=== PATIENT | female | born 1955 | race Caucasian/White ===

== ENCOUNTER 2018-03-11 09:32 | Day surgery (SDC) | payer OTHER, SELFPAY ==
[2018-03-11 10:05] VITALS: BP 137/79; PULSE 61; RESP 16; TEMP 36; O2SAT 100; BMI 28.1
[2018-03-11] MEDS: PROPARACAINE 0.5% OPHTH SOL 2 DROPS EYE-OP (10:15)
[2018-03-11] MEDS: CATARACT EYE COMPOUND (10 DROPS/SYRINGE) 3 DROPS EYE-OP (10:20)
--- NOTE | 2018-03-11 11:10 | PM.PREOP ---
Pre-operative Note Interval Note Pre-op Check: History & Physical Reviewed by Physician
--- NOTE | 2018-03-11 11:18 | SUR.OPER ---
Supine on eye stretcher, head on extension cradle secured with tape. Arms tucked at sides with blanket. Pillow under knees.
[2018-03-11] MEDS: CHONDROIDTIN/SOD HYALURONATE 1.05 ML SYRINGE INTRAOCULA (11:24)
[2018-03-11] MEDS: MOXIFLOXACIN OPHTH DROPS 3 ML BOTTLE 2 DROPS INJ (11:24)
[2018-03-11] MEDS: TRIAMCINOLONE 50 MG/5 ML VIAL INJ (11:25)
[2018-03-11] MEDS: PHENYLEPHRINE/LIDOCAINE 3ML VIAL (OR) EYE-OP (11:29)
[2018-03-11] MEDS: BALANCED SALT IRRIG SOLN NO.2 500 ML, EPINEPHrine 1 MG IRR (11:29)
[2018-03-11] MEDS: LIDOCAINE JELLY 2% 5 ML 1 APPLIC TOP (11:29)
[2018-03-11] MEDS: TETRACAINE 0.5% OPHTH DROPS 15 ML 2 DROPS EYE-RIGHT (11:29)
--- NOTE | 2018-03-11 11:34 | P.OP_ITS ---
Operative Date/Time/Diagnoses - Pre-op diagnosis: Cataract Right eye Post-op diagnosis: same Procedure & Clinicians Procedure: Cataract Surgery Same procedure as scheduled: Yes Surgeon: Aj Vargas Anesthesia Type: MAC +/- and Sedation Operative Notes Procedure in detail: Patient brought to the operating suite. Tetracaine drops placed in the right eye. Patient was prepped and draped in sterile manner. Wire lid speculum was placed in the eye. Betadine drops were placed on the eye. This was irrigated. Lidocaine jelly was placed on the eye. A paracentesis port was created with a side-port blade. 0.1 mL 1% preservative free lidocaine was injected into the anterior chamber. The anterior chamber was deepened with viscoelastic. 2.6 mm keratome was used to create a temporal clear corneal incision. Cystotome and Utrata forceps were used to create continuous tear capsulorrhexis. Balanced salt solution was used to hydro dissect the nucleus. The phacoemulsification handpiece was inserted and the nucleus was removed using the stop and chop technique. The irrigation aspiration handpiece was inserted and the remaining cortex was removed. Anterior chamber was deepened with viscoelastic. An Evans ZCB00 intraocular lens with a power of 12.5 was injected into the capsular bag. Irrigation aspiration handpiece was inserted and the remaining viscoelastic was removed. Incision was hydrated with balanced salt solution and found to be leak free with pressure with Weck- Cynthia sponges. 0.1 mL Vigamox injected anterior chamber. 0.3 mL Kenalog 10 mg was injected subconjunctivally. Lid speculum was removed. The patient left the operating room in excellent condition. Complications: none Condition: stable Disposition: same day surgery
[2018-03-11 11:43] VITALS: BP 129/80; PULSE 65; RESP 16; TEMP 36.6; O2SAT 99
== END 2018-03-11 11:52 ==
LOC: OR 09:34
PROVIDERS: PCP Family Medicine; Visit Provider Ophthalmology
DX: H25.11 Age-related nuclear cataract, right eye (principal); I10 Essential (primary) hypertension
CPT/HCPCS: J0171; J2250; J3010; J3301

== ENCOUNTER 2018-03-25 09:23 | Day surgery (SDC) | payer OTHER, SELFPAY ==
[2018-03-25 10:03] VITALS: BP 141/80; PULSE 62; RESP 16; TEMP 36.6; O2SAT 99
[2018-03-25 10:04] VITALS: BMI 29.0
[2018-03-25] MEDS: PROPARACAINE 0.5% OPHTH SOL 2 DROPS EYE-OP (10:13)
[2018-03-25] MEDS: CATARACT EYE COMPOUND (10 DROPS/SYRINGE) 3 DROPS EYE-OP (10:14)
--- NOTE | 2018-03-25 11:15 | P.OP_ITS ---
Operative Date/Time/Diagnoses - Pre-op diagnosis: Cataract Left eye Post-op diagnosis: same Procedure & Clinicians Surgeon: Aj Vargas Anesthesia Type: MAC +/- and Sedation Operative Notes Procedure in detail: Patient brought to the operating suite. Tetracaine drops placed in the left eye. Patient was prepped and draped in sterile manner. Wire lid speculum was placed in the eye. Betadine drops were placed on the eye. This was irrigated. Lidocaine jelly was placed on the eye. A paracentesis port was created with a side-port blade. 0.1 mL 1% preservative free lidocaine was injected into the anterior chamber. The anterior chamber was deepened with viscoelastic. 2.6 mm keratome was used to create a temporal clear corneal incision. Cystotome and Utrata forceps were used to create continuous tear capsulorrhexis. Balanced salt solution was used to hydro dissect the nucleus. The phacoemulsification handpiece was inserted and the nucleus was removed using the stop and chop technique. The irrigation aspiration handpiece was inserted and the remaining cortex was removed. Anterior chamber was deepened with viscoelastic. An Evans ZCB00 intraocular lens with a power of 12.0 was injected into the capsular bag. Irrigation aspiration handpiece was inserted and the remaining viscoelastic was removed. Incision was hydrated with balanced salt solution and found to be leak free with pressure with Weck- Cynthia sponges. 0.1 mL Vigamox injected anterior chamber. 0.3 mL Kenalog 10 mg was injected subconjunctivally. Lid speculum was removed. The patient left the operating room in excellent condition. Complications: none Condition: stable Disposition: same day surgery
[2018-03-25] MEDS: CHONDROIDTIN/SOD HYALURONATE 1.05 ML SYRINGE INTRAOCULA (11:28)
[2018-03-25] MEDS: MOXIFLOXACIN OPHTH DROPS 3 ML BOTTLE 2 DROPS INJ (11:28)
[2018-03-25] MEDS: TRIAMCINOLONE 50 MG/5 ML VIAL INJ (11:29)
[2018-03-25] MEDS: BALANCED SALT IRRIG SOLN NO.2 500 ML, EPINEPHrine 1 MG IRR (11:29)
[2018-03-25] MEDS: LIDOCAINE JELLY 2% 5 ML 1 APPLIC TOP (11:30)
[2018-03-25] MEDS: PHENYLEPHRINE/LIDOCAINE 3ML VIAL (OR) EYE-OP (11:31)
[2018-03-25] MEDS: TETRACAINE 0.5% OPHTH DROPS 15 ML 2 DROPS EYE-LEFT (11:31)
[2018-03-25 11:43] VITALS: BP 136/81; PULSE 64; RESP 15; TEMP 36.3; O2SAT 100
== END 2018-03-25 11:52 | disposition home or self-care (01) ==
PROVIDERS: PCP Family Medicine; Visit Provider Ophthalmology
DX: H25.12 Age-related nuclear cataract, left eye (principal); I10 Essential (primary) hypertension
CPT/HCPCS: J0171; J2250; J3010; J3301

== ENCOUNTER → 2018-04-14 15:06 | Outpatient (CLI) | payer OTHER, SELFPAY ==
--- NOTE | 2018-04-14 | DI.RAD.S_ITS ---
PROCEDURE: XR FINGER LT MIN 2V INDICATIONS: LEFT LITTLE FINGER PAIN TECHNIQUE: AP hand, 2 views of the fifth finger(s) acquired. COMPARISON: None. FINDINGS: Bones: No fractures or dislocations. No suspicious bony lesions. Soft tissues: No suspicious soft tissue calcifications. IMPRESSION: No fracture or dislocation Dictated by: Johnny Olivera M.D. on 04/14/2018 at 15:23 Approved by: Johnny Olivera M.D. on 04/14/2018 at 15:27
== END ==
PROVIDERS: PCP Family Medicine; Visit Provider Family Medicine
DX: M79.645 Pain in left finger(s) (principal)
CPT/HCPCS: 73140

== ENCOUNTER → 2018-07-04 14:19 | Outpatient (CLI) | payer OTHER, SELFPAY ==
--- NOTE | 2018-07-04 | DI.RAD.S_ITS ---
PROCEDURE: XR FOOT LT MIN 3V INDICATIONS: LEFT FOOT PAIN TECHNIQUE: 3 views of the foot were acquired. COMPARISON: [facility], , FOOT 3V LEFT, 09/08/2017, 12:13. FINDINGS: Bones: There is healed fifth metatarsal base nondisplaced fracture. No acute fractures or dislocations. No suspicious bony lesions. Mild hallux valgus is seen. Hammertoe deformity is noted involving second through fifth toes. Soft tissues: No tibiotalar joint effusion. Achilles tendon appears normal. IMPRESSION: Mild hallux valgus and second through fifth hammertoe deformities. No acute fracture or dislocation. Healed fifth metatarsal base fracture. Dictated by: Bereket Faye M.D. on 07/04/2018 at 15:49 Approved by: Bereket Faye M.D. on 07/04/2018 at 15:50
== END ==
PROVIDERS: PCP Family Medicine; Visit Provider Family Medicine
DX: M79.672 Pain in left foot (principal); M20.12 Hallux valgus (acquired), left foot; M20.42 Other hammer toe(s) (acquired), left foot
CPT/HCPCS: 73630

== ENCOUNTER → 2021-01-16 14:24 | Outpatient (CLI) | payer MEDICARE, OTHER, SELFPAY ==
--- NOTE | 2021-01-16 | DI.RAD.S_ITS ---
PROCEDURE: XR PELVIS 1-2V INDICATIONS: low pack pain TECHNIQUE: Single view(s) of the pelvis acquired. COMPARISON: None. FINDINGS: Bones: No fracture. Lumbar spondylosis and facet arthropathy. Mild bilateral hip joint degeneration. Bilateral sacroiliac spurring and sclerosis. Soft tissues: Visualized bowel gas pattern is normal. No suspicious soft tissue calcifications. IMPRESSION: Diffuse degenerative changes as above. Dictated by: Rakesh Montelongo M.D. on 01/16/2021 at 16:07 Approved by: Rakesh Montelongo M.D. on 01/16/2021 at 16:09
--- NOTE | 2021-01-16 | DI.RAD.S_ITS ---
PROCEDURE: XR LUMBAR SPINE 2-3V INDICATIONS: low back pain TECHNIQUE: 3 views of the lumbar spine were acquired. COMPARISON: [facility], , L-SPINE 2-3 VIEWS, 01/14/2018, 11:19. FINDINGS: Bones: No fracture. Multilevel degenerative endplate sclerosis and spurring. Diffuse facet arthropathy. Mild to moderate diffuse narrowing of the lumbar disc spaces. Levocurvature is noted centered at the L3 level. Soft tissues: Overlying bowel gas pattern is normal. No suspicious soft tissue calcifications. IMPRESSION: Multilevel lumbar spondylosis, grossly unchanged since 01/14/18. Dictated by: Rakesh Montelongo M.D. on 01/16/2021 at 16:03 Approved by: Rakesh Montelongo M.D. on 01/16/2021 at 16:07
== END ==
PROVIDERS: Referring Provider Family Medicine; Visit Provider Family Medicine
DX: M54.5 Low back pain (principal); M47.816 Spondylosis without myelopathy or radiculopathy, lumbar region; M16.0 Bilateral primary osteoarthritis of hip
CPT/HCPCS: 72100; 72170

== ENCOUNTER → 2021-01-19 08:02 | Outpatient (CLI) | payer MEDICARE, OTHER, SELFPAY ==
--- NOTE | 2021-01-19 | DI.US.S_ITS ---
PROCEDURE: US SOFT TISSUE HEAD AND NECK INDICATIONS: SOFT TISSUE MASS LEFT COLLAR BONE TECHNIQUE: Real-time scanning was performed of the neck region of interest, with image documentation. COMPARISON: None. FINDINGS: Sonographic evaluation over the area of current clinical concern as directed by the patient during scanning reveals no abnormality. IMPRESSION: No abnormality found. Continued clinical follow-up is recommended and if clinical concerns persist or increase contrast-enhanced MR scanning is recommended. Dictated by: Juliocesar Gastelum M.D. on 01/19/2021 at 12:14 Approved by: Juliocesar Gastelum M.D. on 01/19/2021 at 12:16
== END ==
PROVIDERS: PCP Family Medicine; Referring Provider Family Medicine; Visit Provider Family Medicine
DX: R22.2 Localized swelling, mass and lump, trunk (principal)
CPT/HCPCS: 76536

== ENCOUNTER → 2021-02-28 09:36 | Outpatient (CLI) | payer MEDICARE, OTHER, SELFPAY ==
--- NOTE | 2021-02-28 | DI.US.S_ITS ---
PROCEDURE: US PELVIC COMPLETE INDICATIONS: Pelvic and perineal pain TECHNIQUE: Real-time scanning was performed of the pelvic organs, with image documentation. Additional endovaginal scanning was necessary due to incomplete visualization of the adnexal and endometrial structures by transabdominal scanning. COMPARISON: [facility], , PELVIC COMPLETE, 10/11/2015, 15:07. FINDINGS: Uterus: Uterus is normal in size at 5.4 x 3.6 x 3.9 cm, and demonstrates a mildly heterogeneous appearance. The endometrium measures 2-3 mm in combined thickness. Incidental note is made of nabothian cysts. Ovaries: The right ovary measures 1.9 x 2 x 1 cm and demonstrates an unremarkable appearance. The left ovary is not well seen. No adnexal masses are seen on either side. Other: No pathologic free abdominal or pelvic fluid. IMPRESSION: Unremarkable pelvic ultrasound for age. Dictated by: Willie Buitrago M.D. on 02/28/2021 at 9:21 Approved by: Willie Buitrago M.D. on 02/28/2021 at 9:22
== END ==
PROVIDERS: PCP Family Medicine; Referring Provider Family Medicine; Visit Provider Family Medicine
DX: R10.2 Pelvic and perineal pain (principal); N88.8 Other specified noninflammatory disorders of cervix uteri
CPT/HCPCS: 76830; 76856

== ENCOUNTER → 2022-03-13 13:55 | Outpatient (CLI) | payer MEDICARE, OTHER, SELFPAY | PROVIDERS: PCP Family Medicine; Referring Provider Orthopaedic Surgery; Visit Provider Family Medicine | DX: Z78.0 Asymptomatic menopausal state (principal); Z13.820 Encounter for screening for osteoporosis | CPT/HCPCS: 77080 ==

== ENCOUNTER → 2022-03-27 12:44 | Outpatient (CLI) | payer MEDICARE, OTHER, SELFPAY ==
--- NOTE | 2022-03-27 | DI.US.S_ITS ---
PROCEDURE: US PERIPH VENOUS LOW EXTREM LT INDICATIONS: LEFT LEG PAIN TECHNIQUE: Real-time imaging, as well as color and pulse Doppler interrogation, were performed of the lower extremity deep veins from the inguinal ligament to the popliteal fossa. COMPARISON: None. FINDINGS: The common femoral, femoral and popliteal veins are normally compressible, and free of intraluminal thrombus. Color and pulse Doppler demonstrate normal phasic intraluminal flow. There is normal augmentation response to distal compression maneuver. Additional, dedicated ultrasound scanning is performed at the area of left lateral thigh pain. No focal ultrasound abnormalities are seen within this region. IMPRESSION: Negative for deep venous thrombosis. Dictated by: Willie Buitrago M.D. on 03/27/2022 at 12:30 Approved by: Willie Buitrago M.D. on 03/27/2022 at 12:30
== END ==
PROVIDERS: PCP Family Medicine; Referring Provider Family Medicine; Visit Provider Family Medicine
DX: M79.605 Pain in left leg (principal)
CPT/HCPCS: 93971

== ENCOUNTER → 2022-11-07 07:51 | Outpatient (CLI) | payer MEDICARE, OTHER, SELFPAY ==
--- NOTE | 2022-11-07 | DI.MG.S_ITS ---
BILATERAL DIGITAL SCREENING MAMMOGRAM 3D/2D WITH CAD: 11/07/2022 CLINICAL: Routine screening. Baseline by default. Comparison mammograms: 02/16/2016, 06/14/2014, 10/16/2007. There are scattered areas of fibroglandular density in both breasts (category b / 25%-50% glandular tissue). Current study was also evaluated with a Computer Aided Detection (CAD) system. No significant masses, calcifications, or other findings are seen in either breast. IMPRESSION: NEGATIVE There is no mammographic evidence of malignancy. A 1 year screening mammogram is recommended. Based on the Tyrer Cuzick model (a risk assessment model) the patient's lifetime risk is 4.5% and her 10 year risk is 2.5%. According to the ACR, ACS, and NCCN guidelines, an annual breast MRI exam along with mammogram is recommended if the patient's lifetime risk is 20% or greater. This exam was interpreted at Station ID: [id number]. NOTE: For mammograms, a report in lay terms will be sent to the patient. Approximately 15% of breast malignancies will not be visualized mammographically. In the management of a palpable breast mass, a negative mammogram must not discourage biopsy of a clinically suspicious lesion. Electronically Signed By: Minh Motta M.D. slc/:11/07/2022 13:09:03 letter sent: Normal Exam ACR BI-RADS Category 1: Negative [id number]
== END ==
PROVIDERS: PCP Family Medicine; Referring Provider Family Medicine; Visit Provider Family Medicine
DX: Z12.31 Encounter for screening mammogram for malignant neoplasm of breast (principal)
CPT/HCPCS: 77063; 77067

== ENCOUNTER → 2024-01-23 10:03 | Outpatient (CLI) | payer MEDICARE, OTHER, SELFPAY ==
--- NOTE | 2024-01-23 10:07 | DI.RAD.S_ITS ---
PROCEDURE: XR CHEST 2V INDICATIONS: Unspecified fall, initial encounter TECHNIQUE: 2 views of the chest were acquired. COMPARISON: [facility], CR, CHEST 1 VIEW, 12/16/2008, 12:03. [facility], CR, XR CHEST 1 VIEW, 01/14/2022, 23:30. FINDINGS: Surgical changes and devices: Right shoulder arthroplasty. Hardware is intact without hardware fracture or periprosthetic lucency to suggest loosening. Alignment is stable. Lungs and pleura: Lungs are clear. No pleural effusions or pneumothorax. Mediastinum: Mediastinal contours are normal. Heart size is normal. Bones and chest wall: No suspicious bony abnormalities. Soft tissues appear unremarkable. IMPRESSION: No acute pulmonary process. Dictated by: Jade Rhodes M.D. on 01/23/2024 at 11:22 Approved by: Jade Rhodes M.D. on 01/23/2024 at 11:22
== END ==
LOC: RAD 10:05
PROVIDERS: PCP Family Medicine; Referring Provider Family Medicine; Visit Provider Family Medicine
DX: M54.6 Pain in thoracic spine (principal)
CPT/HCPCS: 71046

== ENCOUNTER 2024-09-05 11:08 | Inpatient (IN) | payer MEDICARE, OTHER, SELFPAY ==
[2024-09-05] VITALS (14 sets, daily range): BP systolic 138–159; BP diastolic 64–86; PULSE 67–80; RESP 14–18; TEMP 36.3–36.8; O2SAT 94–99; BMI 26.6
--- NOTE | 2024-09-05 11:13 | DI.RAD.S_ITS ---
PROCEDURE: XR HIP W PEL IF DONE RT 2V INDICATIONS: fall TECHNIQUE: AP pelvis with lateral view(s) of the right hip(s). COMPARISON: [facility], , XR PELVIS 1-2V, 01/16/2021, 14:39. FINDINGS: Bones: No fractures or dislocations. Pelvic ring appears intact. No suspicious bony lesions. There is moderate superior joint space narrowing seen of both hips, with associated remodeling changes with subchondral sclerosis and osteophyte formation. Age-appropriate lower lumbar spine degenerative changes are noted. Soft tissues: The visualized bowel gas pattern is normal. No suspicious soft tissue calcifications. IMPRESSION: No displaced fracture can be seen on these plain films. If there is focal tenderness, or other clinical concern for a fracture not seen on these images in this patient with a given history of trauma, please consider a dedicated CT or a short-term followup plain film series (in 1-2 weeks) for further evaluation. Dictated by: Willie Buitrago M.D. on 09/05/2024 at 11:29 Approved by: Willie Buitrago M.D. on 09/05/2024 at 11:30
--- NOTE | 2024-09-05 15:50 | ED.LOWEXIN ---
HPI - Extremity Injury (Lower) General Chief Complaint: Extremity Injury, Lower Stated Complaint: Fall, back and r. hip pain Time Seen by Provider: 09/05/24 14:22 Source: EMS Mode of arrival: EMS History of Present Illness HPI Narrative: 69-year-old female had ground level fall last night, right hip and posterior back and gluteal area discomfort, increasing through the day today. No numbness or tingling. Better if she holds still, worse with movement. No incontinence of urine or stool. No perineal tingling or numbness symptoms. No prior low back or hip surgeries. She does not take blood thinner medications. Related Data Home Medications Medication Instructions Recorded Confirmed ESOMEPRAZOLE SODIUM (NEXIUM) 20 mg PO QDAY ##0 08/26/12 09/05/24 aspirin 81 mg tablet,delayed 81 mg PO BID ##0 08/26/12 09/05/24 release atorvastatin 10 mg tablet (Lipitor) 40 mg PO QDAY ##0 08/26/12 09/05/24 triamterene 37.5 0.5 cap PO QDAY ##0 08/26/12 09/05/24 mg-hydrochlorothiazide 25 mg capsule (Dyazide) metoprolol succinate 100 mg 200 mg PO DAILY 03/11/18 09/06/24 tablet,extended release 24 hr gabapentin 300 mg PO TID 09/05/24 09/05/24 naltrexone 4.5 mg PO BEDTIME 09/05/24 09/05/24 potassium chloride 10 mEq 10 meq PO BID 09/05/24 09/05/24 tablet,extended release(part/cryst) metoprolol succinate 100 mg 150 mg PO QPM 09/06/24 09/06/24 tablet,extended release 24 hr Allergies Allergy/AdvReac Type Severity Reaction Status Date / Time amlodipine [From [facility]] Allergy Unknown Numbness Verified 09/05/24 16:17 Penicillins [PENICILLINS] Allergy Unknown Rash Verified 09/05/24 16:17 lidocaine AdvReac Intermediate Palpitation Verified 09/05/24 16:17 s Review of Systems Review of Systems Narrative: See HPI Patient History Social History household members: spouse Smoking Status: Former smoker Smoking Status: Former smoker tobacco type: cigarettes alcohol intake frequency: a few times a week Substance Use Type: does not use Exam Narrative Exam Narrative: GENERAL: Well-developed patient, in mild distress. HEAD: Atraumatic. Normocephalic. EYES: Pupils equal round and reactive. Extraocular motions intact. No scleral icterus. No injection or drainage. ENT: Nose without bleeding, purulent drainage. Throat without erythema, tonsillar hypertrophy or exudate. Airway patent. NECK: Trachea midline. Non tender CARDIOVASCULAR: Regular rate and rhythm without murmurs, gallops, or rubs. RESPIRATORY: Clear to auscultation. Breath sounds equal bilaterally. No wheezes, rales, or rhonchi. GASTROINTESTINAL: Abdomen soft, non-tender, nondistended. EXTREMITIES: No tenderness to right trochanteric region hip, some tenderness right buttock region, and right low lumbar region. BACK: Nontender without deformity or crepitance. No flank tenderness. NEURO: AOx3. Motor functions grossly nonfocal SKIN: No rash or erythema of visible areas Initial Vital Signs Initial Vital Signs: Vital Signs Temperature 97.4 F L 09/05/24 11:24 Pulse Rate 67 09/05/24 11:24 Respiratory Rate 18 09/05/24 11:24 Blood Pressure 138/64 09/05/24 11:24 Pulse Oximetry 98 09/05/24 11:24 Oxygen Delivery Method Room Air 09/05/24 11:24 Course Orders Ordered: Acetaminophen (Acetaminophen 325 Mg Tablet) 650 mg PO Q6H PRN PRN Reason: Fever/Mild Pain (1-3) Aspirin (Aspirin Ec 81 Mg Tablet) 81 mg PO BEDTIME MELONY Atorvastatin Calcium (Atorvastatin 20 Mg Tablet) 40 mg PO BEDTIME MELONY Gabapentin (Gabapentin 300 Mg Capsule) 300 mg PO BEDTIME MELONY Heparin Sodium (Porcine) (Heparin 5,000 Unit/Ml Vial) 5,000 unit SUBCUT BID [facility] Last Admin: 09/06/24 09:41 Dose: 5,000 unit Documented By: Admin: 09/05/24 22:06 Dose: 5,000 unit Documented By: AT Hydromorphone HCl (Hydromorphone 0.5 Mg Inj) 1 mg IV Q2H PRN PRN Reason: Pain, Severe (7-10) Last Admin: 09/06/24 05:59 Dose: 1 mg Documented By: Admin: 09/06/24 03:36 Dose: 1 mg Documented By: Admin: 09/06/24 00:47 Dose: 1 mg Documented By: MARICRUZ Hydromorphone HCl (Hydromorphone 2 Mg Tablet) 2 mg PO Q4HR PRN PRN Reason: Pain, Severe (7-10) Last Admin: 09/06/24 09:40 Dose: 2 mg Documented By: CLIFF Ketorolac Tromethamine (Ketorolac 10 Mg Tablet) 10 mg PO Q6HR PRN PRN Reason: Pain, Mild (1-3) Stop: 09/11/24 10:06 Last Admin: 09/06/24 10:44 Dose: 10 mg Documented By: CLIFF Metoprolol Succinate (Metoprolol Er 50 Mg Tablet) 200 mg PO DAILY [facility] Last Admin: 09/06/24 10:45 Dose: 200 mg Documented By: CLIFF Metoprolol Succinate (Metoprolol Er 50 Mg Tablet) 150 mg PO BEDTIME [facility] Naloxone HCl (Naloxone 0.4 Mg/Ml Vial) 0.2 mg IV Q2MIN PRN PRN Reason: Opiate Reversal Nf - Naltrexone 4.5 (Mg) 4.5 mg PO BEDTIME [facility] Nf - Triamterene/ (Hctz 75mg/50mg) 0.5 each PO DAILY [facility] Last Admin: 09/06/24 09:41 Dose: 0.5 each Documented By: CLIFF Ondansetron HCl (Ondansetron 4 Mg/2 Ml Inj) 4 mg IV Q8HR PRN PRN Reason: Nausea And Vomiting Pantoprazole Sodium (Pantoprazole Dr 40 Mg Tablet) 40 mg PO 0600 [facility] Last Admin: 09/06/24 06:00 Dose: 40 mg Documented By: MARICRUZ Potassium Chloride (Potassium Chloride 10 Meq Tab) 10 meq PO BID [facility] Last Admin: 09/06/24 09:41 Dose: 10 meq Documented By: CLIFF Discontinued Medications Hydrocodone Bitart/Acetaminophen (Hydrocodone/Acet 5/325 Tablet) 1 tab PO Q4H PRN PRN Reason: Pain, Moderate (4-6) Aspirin (Aspirin Ec 81 Mg Tablet) 81 mg PO BID [facility] Last Admin: 09/06/24 09:44 Dose: Not Given Documented By: CLIFF Aspirin (Aspirin Ec 81 Mg Tablet) 81 mg PO NOW ONE Stop: 09/05/24 22:43 Last Admin: 09/05/24 23:36 Dose: 81 mg Documented By: MARICRUZ Aspirin (Aspirin Ec 81 Mg Tablet) 81 mg PO BID [facility] Atorvastatin Calcium (Atorvastatin 20 Mg Tablet) 40 mg PO NOW ONE Stop: 09/05/24 23:07 Last Admin: 09/05/24 23:35 Dose: 40 mg Documented By: MARICRUZ Atorvastatin Calcium (Atorvastatin 20 Mg Tablet) 40 mg PO DAILY [facility] Last Admin: 09/06/24 09:44 Dose: Not Given Documented By: CLIFF Gabapentin (Gabapentin 300 Mg Capsule) 300 mg PO TID [facility] Last Admin: 09/06/24 09:44 Dose: Not Given Documented By: CLIFF Gabapentin (Gabapentin 300 Mg Capsule) 300 mg PO NOW ONE Stop: 09/05/24 22:43 Last Admin: 09/05/24 23:36 Dose: 300 mg Documented By: MARICRUZ Gabapentin (Gabapentin 300 Mg Capsule) 300 mg PO TID [facility] Hydromorphone HCl (Hydromorphone 0.5 Mg Inj) 0.5 mg IV NOW ONE Stop: 09/05/24 19:22 Last Admin: 09/05/24 19:46 Dose: 0.5 mg Documented By: DEVIN Hydromorphone HCl (Hydromorphone 0.5 Mg Inj) 0.5 mg IV Q2H PRN PRN Reason: Pain, Severe (7-10) Last Admin: 09/05/24 23:01 Dose: 0.5 mg Documented By: MARICRUZ Ketorolac Tromethamine (Ketorolac 30 Mg/Ml Vial) 30 mg IM NOW ONE Stop: 09/05/24 15:52 Last Admin: 09/05/24 16:10 Dose: Not Given Documented By: KARISSA Ketorolac Tromethamine (Ketorolac 30 Mg/Ml Vial) 30 mg IV NOW ONE Stop: 09/05/24 16:11 Last Admin: 09/05/24 16:11 Dose: 30 mg Documented By: KARISSA Metoprolol Succinate (Metoprolol Er 50 Mg Tablet) 100 mg PO NOW ONE Stop: 09/05/24 22:57 Last Admin: 09/06/24 02:37 Dose: Not Given Documented By: MARICRUZ Metoprolol Succinate (Metoprolol Er 50 Mg Tablet) 200 mg PO NOW ONE Stop: 09/05/24 23:34 Last Admin: 09/06/24 00:53 Dose: 200 mg Documented By: MARICRUZ Potassium Chloride (Potassium Chloride 10 Meq Tab) 10 meq PO NOW ONE Stop: 09/05/24 23:08 Last Admin: 09/05/24 23:35 Dose: 10 meq Documented By: MARICRUZ Vital Signs Vital signs: Vital Signs - 8 hr 09/05/24 11:24 09/05/24 15:23 09/05/24 15:23 Temperature 97.4 F L Pulse Rate 67 69 Respiratory Rate 18 Blood Pressure 138/64 159/71 H Pulse Oximetry 98 98 Oxygen Delivery Method Room Air 09/05/24 15:30 09/05/24 16:00 09/05/24 16:30 Temperature Pulse Rate 72 72 73 Respiratory Rate Blood Pressure Pulse Oximetry 97 95 95 Oxygen Delivery Method Room Air 09/05/24 17:00 Temperature Pulse Rate 71 Respiratory Rate Blood Pressure Pulse Oximetry 94 Oxygen Delivery Method MDM - Extremity Injury (Lower) Lab Data 09/06/24 05:54 09/06/24 05:54 Imaging Data X-ray right hip series: Radiologist's Impression: [address] [address] XRay Report Signed Patient: Hemalatha Bush MR#: [id number] : 1955 Acct:[id number] Age/Sex: 69 / F Date of Service: 09/05/24 Loc: ED Accession Number: [id number] Procedure: XR hip w pel if done RT 2V Ordering Provider: Michael Morrison MD PROCEDURE: XR HIP W PEL IF DONE RT 2V INDICATIONS: fall TECHNIQUE: AP pelvis with lateral view(s) of the right hip(s). COMPARISON: [facility], CR, XR PELVIS 1-2V, 01/16/2021, 14:39. FINDINGS: Bones: No fractures or dislocations. Pelvic ring appears intact. No suspicious bony lesions. There is moderate superior joint space narrowing seen of both hips, with associated remodeling changes with subchondral sclerosis and osteophyte formation. Age-appropriate lower lumbar spine degenerative changes are noted. Soft tissues: The visualized bowel gas pattern is normal. No suspicious soft tissue calcifications. IMPRESSION: No displaced fracture can be seen on these plain films. If there is focal tenderness, or other clinical concern for a fracture not seen on these images in this patient with a given history of trauma, please consider a dedicated CT or a short-term followup plain film series (in 1-2 weeks) for further evaluation. Dictated by: Willie Buitrago M.D. on 09/05/2024 at 11:29 Approved by: Willie Buitrago M.D. on 09/05/2024 at 11:30 CT scan - abdomen/pelvis: Radiologist's Impression: Close Abdomen/Pelvis CT (Signed) Willie Buitrago - 09/05/24 Hip X-Ray (Signed) Willie Buitrago - 09/05/24 Launch?Image [address] [address] [address] Scan Report Signed Patient: Hemalatha Bush MR#: [id number] : 1955 Acct:[id number] Age/Sex: 69 / F Date of Service: 09/05/24 Loc: ED Accession Number: [id number] Procedure: CT abdomen pelvis wo con Ordering Provider: Michael Morrison MD PROCEDURE: CT ABDOMEN PELVIS WO CON INDICATIONS: right hip, sciatic, lumbar pain after fall TECHNIQUE: Axial sections were acquired from the lung bases to the pubic symphysis. Coronal and sagittal reformats were performed. For radiation dose reduction, the following was used: automated exposure control, adjustment of mA and/or kV according to patient size. COMPARISON: [facility], CR, XR HIP W PEL IF DONE RT 2V, 09/05/2024, 12:05. FINDINGS: Image quality: Diagnostic. Lower Chest: No significant findings. URINARY: Right Kidney: No stones or hydronephrosis. Right Ureter: No hydroureter. Left Kidney: No stones or hydronephrosis. Left Ureter: No hydroureter. Bladder: Normal wall thickness. No stones. ABDOMEN: Liver: No contour-deforming solid mass. Gallbladder: There is a gallstone seen. No additional CT findings of cholecystitis are seen. Biliary ducts: No biliary dilation. Pancreas: No ductal dilation. Spleen: Size is within normal limits. Adrenal Glands: No adrenal nodules. Stomach and Bowel: Normal colonic caliber, without significant wall thickening. Colonic diverticulosis is seen, without findings of active diverticulitis. A normal appendix is noted. No dilated loops of small bowel are seen. Peritoneum: No abnormal intraperitoneal fluid. No free air. Ventral Wall: No hernia. Abdominal Nodes: No enlarged retroperitoneal or mesenteric lymph nodes. Vessels: Aorta and inferior vena cava are normal in size. Atherosclerotic calcification is noted. PELVIS: Pelvic Organs: No adnexal masses are seen on either side. Pelvic Nodes: Unremarkable. Miscellaneous: No inguinal hernias are seen. Bones: There is a mildly displaced fracture of the right inferior pubic ramus. A minimal fractures seen of the right pubis. No fracture of the right acetabulum or right proximal femur can be seen. Mild levoconvex scoliotic curvature is noted. Age-appropriate bony degenerative changes are seen. IMPRESSION: There is a minimally displaced fracture of the right pubis and there is a mildly displaced fracture of the right inferior pubic ramus. Additional findings: Gallstone Diverticulosis, without active diverticulitis Dictated by: Willie Buitrago M.D. on 09/05/2024 at 17:07 Approved by: Willie Buitrago M.D. on 09/05/2024 at 17:10 [facility] Narrative Medical decision making narrative: 69-year-old with ground level fall yesterday, posterior right hip gluteal lumbar area discomfort. Screening x-ray right hip from triage sent, no fractures or dislocations obvious. IM Toradol given, trial of ambulation. Patient was unable to ambulate due to pain. Seems to have more tenderness to gluteal sciatic lumbar region then anterior or lateral hip. Consider CT imaging pelvis, lumbar spine. We will obtain CT abdomen and pelvis noncontrast study to visualize all the structures including bony windows for lumbar spine. Patient agreeable. IV Dilaudid CT abdomen and pelvis noncontrast. Impressions: ?There is a minimally displaced fracture of the right pubis and there is a mildly displaced fracture of the right inferior pubic ramus.? Incidentally noted also were gallstones and diverticulosis without active diverticulitis. See radiology report Patient reluctant to try further weight-bearing at this time, significant pain, consider admission. We will consult Orthopedic surgery. Case discussed with Orthopedic surgery Dr. Wilburn, he will consult, nonoperative likely, patient can weightbear as tolerated, anticipate admission to hospitalist service. PT consult as inpatient. Hospitalist paged Case discussed with Dr. Kelley, accepts patient for admission to hospital Discharge Plan Departure Patient Disposition: Admitted as Observation Clinical Impression: Acute pain of right hip, Closed fracture of right pelvis Admit Date/Time: 09/05/24 19:27 Admit Provider: Moe Kelley
[2024-09-05] MEDS: KETOROLAC 30 MG/ML VIAL IV (16:11)
--- NOTE | 2024-09-05 17:45 | DI.CT.S_ITS ---
PROCEDURE: CT ABDOMEN PELVIS WO CON INDICATIONS: right hip, sciatic, lumbar pain after fall TECHNIQUE: Axial sections were acquired from the lung bases to the pubic symphysis. Coronal and sagittal reformats were performed. For radiation dose reduction, the following was used: automated exposure control, adjustment of mA and/or kV according to patient size. COMPARISON: [facility], CR, XR HIP W PEL IF DONE RT 2V, 09/05/2024, 12:05. FINDINGS: Image quality: Diagnostic. Lower Chest: No significant findings. URINARY: Right Kidney: No stones or hydronephrosis. Right Ureter: No hydroureter. Left Kidney: No stones or hydronephrosis. Left Ureter: No hydroureter. Bladder: Normal wall thickness. No stones. ABDOMEN: Liver: No contour-deforming solid mass. Gallbladder: There is a gallstone seen. No additional CT findings of cholecystitis are seen. Biliary ducts: No biliary dilation. Pancreas: No ductal dilation. Spleen: Size is within normal limits. Adrenal Glands: No adrenal nodules. Stomach and Bowel: Normal colonic caliber, without significant wall thickening. Colonic diverticulosis is seen, without findings of active diverticulitis. A normal appendix is noted. No dilated loops of small bowel are seen. Peritoneum: No abnormal intraperitoneal fluid. No free air. Ventral Wall: No hernia. Abdominal Nodes: No enlarged retroperitoneal or mesenteric lymph nodes. Vessels: Aorta and inferior vena cava are normal in size. Atherosclerotic calcification is noted. PELVIS: Pelvic Organs: No adnexal masses are seen on either side. Pelvic Nodes: Unremarkable. Miscellaneous: No inguinal hernias are seen. Bones: There is a mildly displaced fracture of the right inferior pubic ramus. A minimal fractures seen of the right pubis. No fracture of the right acetabulum or right proximal femur can be seen. Mild levoconvex scoliotic curvature is noted. Age-appropriate bony degenerative changes are seen. IMPRESSION: There is a minimally displaced fracture of the right pubis and there is a mildly displaced fracture of the right inferior pubic ramus. Additional findings: Gallstone Diverticulosis, without active diverticulitis Dictated by: Willie Buitrago M.D. on 09/05/2024 at 17:07 Approved by: Willie Buitrago M.D. on 09/05/2024 at 17:10
[2024-09-05] MEDS: HYDROMORPHONE 0.5 MG INJ IV ×2 (19:46→23:01)
[2024-09-05 19:49] LABS: Add Manual Diff / Slide Review NO; Basophils Absolute Auto 100 /uL (0-100); Eosinophils Absolute Auto 200 /uL (0-450); Eosinophils Percent Auto 2.7 % (2-4); Hemoglobin 13.2 g/dL (12.0-16.0); Lymphocytes Absolute Auto 1500 /uL (1100-4500); Lymphocytes Percent Auto 19.6 % (25-40); Mean Corpuscular HGB Conc 33.8 % (30-36); Mean Corpuscular Hemoglobin 31.8 PG (26-34); Mean Corpuscular Volume 94.1 fL (80-100); Monocytes Absolute Auto 600 /uL (0-900); Monocytes Percent Auto 8.1 % (3-14); Neutrophils Absolute Auto 5200 /uL (1500-7000); Neutrophils Percent Auto 68.6 % (50-75); Platelet Count 208 X10^3/uL (150-400); Red Blood Cell Count 4.15 X10^6/uL (4.0-5.2); Red Cell Distribution Width 13.2 % (11.6-14.8); White Blood Cell Count 7.5 X10^3/uL (4.5-11.0)
[2024-09-05 19:59] LABS: INR 1.1 (0.9-1.3); Prothrombin Time 12.7 SECONDS (9.4-12.5)
[2024-09-05 20:03] LABS: Alanine Aminotransferase 26 IU/L (<35); Albumin Globulin Ratio 1.4 (1.0-2.8); Alkaline Phosphatase 125 U/L (38-126); Aspartate Aminotransferase 34 IU/L (14-36); BUN Creatinine Ratio 24.3 (6-22); Bilirubin Total 1.2 mg/dL (0.2-1.3); Blood Urea Nitrogen 17 mg/dL (7-17); Calcium 8.9 mg/dL (8.4-10.2); Carbon Dioxide 32 mmol/L (22-32); Chloride 101 mmol/L (98-107); Estimated Glomerular Filt Rate > 60 mL/min (>60); Globulin 2.8 g/dL (1.7-4.1); Glucose 87 mg/dL (80-110); HEMOLYSIS < 15 (0-50); Potassium 3.7 mmol/L (3.4-5.1); Sodium 138 mmol/L (137-145); Total Protein 6.8 g/dL (6.3-8.2)
[2024-09-05] MEDS: HEPARIN 5,000 UNIT/ML VIAL 5000 UNIT SUBCUT (22:06)
[2024-09-05] MEDS: ATORVASTATIN 20 MG TABLET 40 MG PO (23:35)
[2024-09-05] MEDS: POTASSIUM CHLORIDE 10 MEQ TAB PO (23:35)
[2024-09-05] MEDS: GABAPENTIN 300 MG CAPSULE PO (23:36)
[2024-09-05] MEDS: ASPIRIN EC 81 MG TABLET PO (23:36)
[2024-09-06] VITALS (7 sets, daily range): BP systolic 121–142; BP diastolic 59–82; PULSE 65–77; RESP 14–18; TEMP 36.5–36.7; O2SAT 94–98
[2024-09-06] MEDS: HYDROMORPHONE 0.5 MG INJ 1 MG IV ×3 (00:47→05:59)
[2024-09-06] MEDS: METOPROLOL ER 50 MG TABLET 200 MG PO ×2 (00:53→10:45)
[2024-09-06 00:56] LABS: Appearance Urine UA CLEAR; Bilirubin Urine UA NEGATIVE (NEGATIVE); Color Urine UA YELLOW; Glucose Urine UA NEGATIVE (Negative); Ketones Urine UA 2+ (NEGATIVE); Leukocyte Esterase Urine UA 1+ (NEGATIVE); Nitrite Urine UA NEGATIVE (Negative); Occult Blood Urine UA NEGATIVE (Negative); Protein Urine UA NEGATIVE (Negative); Specific Gravity Urine UA 1.015 (1.000-1.035); Urobilinogen Urine UA 0.2 E.U./dL (0.2)
[2024-09-06 01:04] LABS: Bacteria Urine Occasional (0-1); Culture Indicated Urine Specimen Cultured; RBC Urine None Seen (0-5/HPF); Squamous Epithelial Cell Urine 0-1 /HPF (0-5/HPF); Urine Volume 10mL (spun); WBC Urine 1-5/HPF (0-5/HPF)
--- NOTE | 2024-09-06 04:30 | P.HP_ITS ---
History of Present Illness History of Present Illness Chief complaint: Fall, back and r. hip pain Narrative: 69 year-old female with past medical history of hyperlipidemia, hypertension, GERD, presents with complaint of a fall and right hip pain. Per the patient report, the patient was home and had a mechanical fall. The patient landed on the right side of her hip and also her lower back. The patient did have increasing pain throughout the day in her right hip but denies any focal weakness, numbness or urinary/bowel incontinence. The patient also denies any head injury or loss of consciousness. The patient denies being on a blood thinner. The patient denies any fever, chills, nausea, vomiting, diarrhea, chest pain, shortness of breath. In our emergency room, the patient was hemodynamically stable. Labs shows no acute findings. CT of the abdomen pelvic shows a minimally displaced fracture of the right pubis and mildly displayed fracture of the right inferior pubic ramus. Orthopedic surgeon was called and recommended to admit the patient for pain control, PT/OT and orthopedic will be available for consult if need in the morning. [facility] Social History household members: spouse Smoking Status: Former smoker Meds Home Medications and Allergies Home Medications Medication Instructions Recorded Confirmed Type ESOMEPRAZOLE SODIUM (NEXIUM) 20 mg PO QDAY ##0 08/26/12 09/05/24 History aspirin 81 mg tablet,delayed 81 mg PO BID ##0 08/26/12 09/05/24 History release atorvastatin 10 mg tablet (Lipitor) 40 mg PO QDAY ##0 08/26/12 09/05/24 History triamterene 37.5 0.5 cap PO QDAY ##0 08/26/12 09/05/24 History mg-hydrochlorothiazide 25 mg capsule (Dyazide) metoprolol succinate 100 mg 200 mg PO QPM 03/11/18 09/05/24 History tablet,extended release 24 hr gabapentin 300 mg PO TID 09/05/24 09/05/24 History naltrexone 4.5 mg PO BEDTIME 09/05/24 09/05/24 History potassium chloride 10 mEq 10 meq PO BID 09/05/24 09/05/24 History tablet,extended release(part/cryst) Allergies Allergy/AdvReac Type Severity Reaction Status Date / Time amlodipine [From [facility]] Allergy Unknown Numbness Verified 09/05/24 16:17 Penicillins [PENICILLINS] Allergy Unknown Rash Verified 09/05/24 16:17 lidocaine AdvReac Intermediate Palpitation Verified 09/05/24 16:17 s Review of Systems Review of Systems ROS: Yes All systems reviewed with the patient and are negative except as otherwise documented Exam Vital Signs (past 8 hours): - 09/06/24 00:00 09/06/24 00:53 Temperature 98.1 F Pulse Rate 76 71 Respiratory Rate 14 Blood Pressure 127/74 142/80 H Pulse Oximetry 96 Oxygen Flow Rate 0 Oxygen Delivery Method Room Air Oxygen Flow Rate 0 Narrative Exam Narrative: GENERAL: The patient is not in any acute distressed. Awake and alert. HEENT: Nonicteric sclerae, PERRLA, EOMI. Oropharynx clear. Moist mucous membranes. Conjunctivae appear well perfused. HEART: Regular rate and rhythm without murmurs. No lower extremities edema. LUNGS: Clear to auscultation bilaterally. No wheezing, crackles or rhonchi ABDOMEN: Soft, positive bowel sounds, nontender. SKIN: No rash, no excessive bruising, petechiae, or purpura. NEUROLOGIC: AxO x 3. Cranial nerves II-XII intact without motor/sensory deficit. Though limimited movement in RLEs due to pain Objective Labs 09/05/24 19:40 09/05/24 19:40 Labs: Laboratory Results - last 24 hr 09/05/24 09/06/24 19:40 00:14 WBC 7.5 RBC 4.15 Hgb 13.2 Hct 39.0 MCV 94.1 MCH 31.8 MCHC 33.8 RDW 13.2 Plt Count 208 Neut % (Auto) 68.6 Lymph % (Auto) 19.6 L [place] % (Auto) 8.1 Eos % (Auto) 2.7 Baso % (Auto) 1.0 Neut # (Auto) 5200 Lymph # (Auto) 1500 Rabun # (Auto) 600 Eos # (Auto) 200 Baso # (Auto) 100 PT 12.7 H INR 1.1 Sodium 138 Potassium 3.7 Chloride 101 Carbon Dioxide 32 BUN 17 Creatinine 0.70 Estimated GFR > 60 BUN/Creatinine Ratio 24.3 H Glucose 87 Calcium 8.9 Total Bilirubin 1.2 AST 34 ALT 26 Alkaline Phosphatase 125 Total Protein 6.8 Albumin 4.0 Globulin 2.8 Albumin/Globulin Ratio 1.4 Urine Color Yellow Urine Appearance Clear Urine pH 6.0 Ur Specific [place] 1.015 Urine Protein Negative Urine Glucose (UA) Negative Urine Ketones 2+ H Urine Occult Blood Negative Urine Nitrate Negative Urine Bilirubin Negative Urine Urobilinogen 0.2 Ur Leukocyte Esterase 1+ H Urine RBC None seen Urine WBC 1-5/hpf Ur Squamous Epith Cells 0-1 /hpf Urine Bacteria Occasional (0-1) Ur Culture Indicated? Specimen cultured Vol Urine Centrifuged 10ml (spun) Assessment & Plan Assessment & Plan narrative: Ground level fall with minimally displaced fracture of the pubic ramus. Admit the patient to medical tele under observation. Pain control. PT/OT. Orthopedic consulted and appreciate further recommendation and input. Consider rehab post discharge. Hyperlipidemia resume Home statin. Hypertension monitor blood pressure and resume home blood pressure medication accordingly. DVT prophylaxis heparin SQ. Code status full code Disposition likely home or rehab in one to two days. Time-Based Coding :: [TOTAL MINUTES] spent with patient and on the chart (including review of chart, obtaining history, exam, reviewing outside data, placing orders, documenting exam and treatment plan, and counseling patient) on [DATE].
[2024-09-06] MEDS: PANTOPRAZOLE DR 40 MG TABLET PO (06:00)
[2024-09-06 06:21] LABS: Add Manual Diff / Slide Review NO; Basophils Absolute Auto 100 /uL (0-100); Basophils Percent Auto 1.1 % (0-2); Eosinophils Absolute Auto 400 /uL (0-450); Hematocrit 37.1 % (36-46); Hemoglobin 12.5 g/dL (12.0-16.0); Lymphocytes Absolute Auto 1600 /uL (1100-4500); Lymphocytes Percent Auto 23.1 % (25-40); Mean Corpuscular HGB Conc 33.8 % (30-36); Mean Corpuscular Volume 94.6 fL (80-100); Monocytes Absolute Auto 500 /uL (0-900); Monocytes Percent Auto 7.7 % (3-14); Neutrophils Absolute Auto 4400 /uL (1500-7000); Neutrophils Percent Auto 63.1 % (50-75); Platelet Count 198 X10^3/uL (150-400); Red Blood Cell Count 3.92 X10^6/uL (4.0-5.2); Red Cell Distribution Width 13.3 % (11.6-14.8)
[2024-09-06 06:40] LABS: BUN Creatinine Ratio 33.3 (6-22); Blood Urea Nitrogen 23 mg/dL (7-17); Calcium 8.7 mg/dL (8.4-10.2); Carbon Dioxide 31 mmol/L (22-32); Chloride 101 mmol/L (98-107); Estimated Glomerular Filt Rate > 60 mL/min (>60); Glucose 91 mg/dL (80-110); HEMOLYSIS < 15 (0-50); Potassium 3.5 mmol/L (3.4-5.1); Sodium 136 mmol/L (137-145)
--- NOTE | 2024-09-06 07:06 | PC.NURSE ---
Admit/NOC Shift Note- Patient arrived to room via stretcher from ER at 2014. Slider board used to transfer [id number] to bed. Patient alert and oriented and able to make needs known to staff. Admit questions done, medications reviewed, physical assessment done, and skin check completed. Patient ordiented to bed and bed controls, room, lights, menu, phone, and call [facility]/tv remote. safety measures in place. bed alarm activated. Patient agrees to call for assistance as needed. Call [facility] and phone within reach.
[2024-09-06] MEDS: HYDROMORPHONE 2 MG TABLET PO (09:40)
[2024-09-06] MEDS: HEPARIN 5,000 UNIT/ML VIAL 5000 UNIT SUBCUT ×2 (09:41→20:52)
[2024-09-06] MEDS: POTASSIUM CHLORIDE 10 MEQ TAB PO ×2 (09:41→20:51)
[2024-09-06] MEDS: TRIAMTERENE PO (09:41)
[2024-09-06] MEDS: HYDROCHLOROTHIAZIDE PO (09:41)
--- NOTE | 2024-09-06 10:42 | PT.IIE ---
Addendum entered and electronically signed by Rosemarie Ng PT 09/06/24 10:43: Ebony Shepherd in signing Original Note: Physical Therapy Inpatient Evaluation/Re-Eval M1 PT/OT-IP Prior Functional Status Start: 09/06/24 09:31 Freq: NEEDED Status: Active Protocol: Document 09/06/24 10:09 MB (Rec: 09/06/24 10:42 MB [id number]) Medical Review Prior Functional Status Medical History Reviewed Yes Diet/Fluid Consistency Regular Communication WNLs Mobility and Gait I, no AD Activities of Daily Living and IADL's I, drove Social History Household Members spouse Living Arrangements House Number of Stairs To Enter/Railing? No steps to enter and does not have to do steps that are in the home Home Environment Standard Height Toilet,Walk in Shower Home Equipment Straight Cane Employment Status Retired M2 PT-IP Current Condition Start: 09/06/24 09:31 Freq: NEEDED Status: Active Protocol: Document 09/06/24 10:09 MB (Rec: 09/06/24 10:42 MB [id number]) Physical Therapy Current Condition Current Condition Evaluation Date 09/06/24 Treatment Diagnosis Right pubis and right inferior pubic ramis fx M3 PT-IP Subjective Start: 09/06/24 09:31 Freq: NEEDED Status: Active Protocol: Document 09/06/24 10:09 MB (Rec: 09/06/24 10:42 MB [id number]) Subjective Physical Therapy Visit Type Type Initial Evaluation Visit Start Time 10:09 Visit Stop Time 10:31 Number of CABINET FINISHER Visits 0 Physical Therapy Visit Comments Patient Comments Pt states she is afraid to get up and move. Therapy Pain Assessment Pain When Pain Assessed During Mobility Pain Present Pain Present Pain Reported Location Right pubic area and LB Scale Used Not rated M4 PT-IP Mobility and Gait Start: 09/06/24 09:31 Freq: NEEDED Status: Active Protocol: Document 09/06/24 10:09 MB (Rec: 09/06/24 10:42 MB [id number]) PT-Bed Mobility Assessment Supine to Sit Supine to Sit Standby Assistance,Head of Bed Elevated,Bedrails Scooting Scooting to Edge of Bed Standby Assistance PT-Transfer Assessment Sit to and From Stand Sit to and from Stand Contact Guard Assistance,1 Person Assistance,Use of Upper Extremities Equipment Transfer Assistive Device Gait Belt,Front Wheeled Walker Orthotic/Prosthetic Devices or Brace: No Transfers Transfer Destination Toilet Transfer Technique Ambulation Transfer Ability Level of Assist Contact Guard Assistance,1 Person Assistance,Use of Upper Extremities Comments Mobility Comments Cues to push up from the bed and not to reach for the walker, cues to back up to toilet and to reach for grab bar right hand and toilet seat left hand and instructed pt to do the same when she gets up with nsg after toileting ( she needs some time) and left with grab cord in lap and nsg aware Gait Assessment Gait Gait Assistance Required: Contact Guard Assist Distance (Feet) 20 Able to Maintain Weight Bearing Status Yes During Gait Assistive Devices Assistive Device Gait Belt,Front Wheeled Walker Orthotic/Prosthetic Devices or Brace: No Gait Deviations General Gait Pattern Antalgic,Decreased Stride Length,Flexed Trunk,Step-to Gait Factors Limiting Gait Function Factors Limiting Gait Function Decreased Activity Tolerance, Pain PT-Balance Assessment Sitting Balance and Reactions Static Sitting Balance Ability Good Dynamic Sitting Balance Ability Good Standing Balance and Reactions Static Standing Balance Ability Good Dynamic Standing Balance Ability Fair Device Used RW M5 PT-IP Objective Assessments Start: 09/06/24 09:31 Freq: NEEDED Status: Active Protocol: Document 09/06/24 10:09 MB (Rec: 09/06/24 10:42 MB [id number]) Orientation Orientation/Cognition Level of Alertness Alert Language Function Ability No Deficits Noted Safety Awareness Understands Safety Issues Memory Description No Deficits Noted Gross Range of Motion Upper Extremity ROM Assessment Within Functional Limits Impairments Pt reports she has a bad right shoulder Lower Extremity ROM Impairments LE ROM functional but not fully assessed d/t pain from fx Strength Upper Extremity Strength Assessment Within Functional Limits Lower Extremity Strength Assessment Within Functional Limits Coordination Assessment Gross Coordination Gross Coordination Impaired Assessment Coordination Comments Antalgic movement today Sensation Assessment Sensation Gross Sensation WNL Muscle Tone Muscle Tone WNL Yes M6 PT-IP Treatment Start: 09/06/24 09:31 Freq: NEEDED Status: Active Protocol: Document 09/06/24 10:09 MB (Rec: 09/06/24 10:42 MB [id number]) Physical Therapy Treatment Education Education Provided Safety M7 PT-IP Assessment and Plan Start: 09/06/24 09:31 Freq: NEEDED Status: Active Protocol: Document 09/06/24 10:09 MB (Rec: 09/06/24 10:42 MB [id number]) PT Summary Assessment and Plan Potential Rehabilitation Potential Good Status of Condition at Evaluation Evolving Summary Impairments Pain,ROM,Strength,Balance, Coordination,Bed Mobility, Transfers,Gait,Activity Tolerance Progress Towards Goals Progressing Toward Goals Assessment Summary 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 She moves well despite concerns about pain with mobility and with getting up. She requires cues for hand placement and walker training with step-to started this first time OOB. She will need a RW for d/c and may check at [facility] if she discharges tomorrow, otherwise can issue from hospital. She has no steps to enter home. Recommend up with nsg. Goals Bed Mobility Goal Independent Transfer Goal Independent,Front Wheeled Walker Gait Goal Independent,Front Wheel Walker Gait Distance 75 Days to Meet Goals 3 Frequency of Treatment Other frequency 1-2x/day Treatment Plan Physical Therapy Treatment Plan Bed Mobility Training,Transfer Training,Gait Training, Therapeutic Exercise,Balance Retraining,Discharge Planning, Hot or Cold Pack,Neuromuscular Re-ed,Coordination Retraining ,Manual Therapy Precautions Other Precautions Discussed in rounds, and hospitalist clears for WBAT, which is what PT would assume for pubic fx Weight Bearing Status Allowed Weight Bearing Amount (enter % See above or #) (%) Recommendations To Nursing Amount of Assist Needed 1 Person Assist Discharge Recommendations PT Discharge Recommendations Home with Assistance, Outpatient PT Equipment Needed for Home Before May need RW issued Discharge Transportation Needs at Discharge Private Vehicle
[2024-09-06] MEDS: KETOROLAC 10 MG TABLET PO ×2 (10:44→17:16)
--- NOTE | 2024-09-06 11:05 | PM.PN.1 ---
Subjective Subjective Date Patient Seen: 09/06/24 Time Patient Seen: 11:05 Interval history: Patient seen in follow-up of hypertension ground level fall pelvic fracture. Patient with significant pain. He has not been mobilized yet. Otherwise feeling well. No leg swelling or other change. Otherwise doing well. Has not moved at all. Pain all in her right leg. Exam Vital Signs (past 8 hours): - 09/06/24 04:00 09/06/24 08:00 09/06/24 10:45 Temperature 97.7 F 97.7 F Pulse Rate 68 67 77 Respiratory Rate 14 18 Blood Pressure 123/78 137/69 132/82 Pulse Oximetry 94 95 Oxygen Flow Rate 0 0 Oxygen Delivery Method Room Air Oxygen Flow Rate 0 Narrative Exam Narrative: Alert female lying in bed holding still in no acute distress lungs are clear heart is regular rate and rhythm did not move legs but pulses are good. Sensation in lower legs are normal Objective Labs 09/06/24 05:54 09/06/24 05:54 Labs: Laboratory Results - last 24 hr 09/05/24 09/06/24 09/06/24 19:40 00:14 05:54 WBC 7.5 7.0 RBC 4.15 3.92 L Hgb 13.2 12.5 Hct 39.0 37.1 MCV 94.1 94.6 MCH 31.8 32.0 MCHC 33.8 33.8 RDW 13.2 13.3 Plt Count 208 198 Neut % (Auto) 68.6 63.1 Lymph % (Auto) 19.6 L 23.1 L [place] % (Auto) 8.1 7.7 Eos % (Auto) 2.7 5.0 H Baso % (Auto) 1.0 1.1 Neut # (Auto) 5200 4400 Lymph # (Auto) 1500 1600 [place] # (Auto) 600 500 Eos # (Auto) 200 400 Baso # (Auto) 100 100 PT 12.7 H INR 1.1 Sodium 138 136 L Potassium 3.7 3.5 Chloride 101 101 Carbon Dioxide 32 31 BUN 17 23 H Creatinine 0.70 0.69 Estimated GFR > 60 > 60 BUN/Creatinine Ratio 24.3 H 33.3 H Glucose 87 91 Calcium 8.9 8.7 Total Bilirubin 1.2 AST 34 ALT 26 Alkaline Phosphatase 125 Total Protein 6.8 Albumin 4.0 Globulin 2.8 Albumin/Globulin Ratio 1.4 Urine Color Yellow Urine Appearance Clear Urine pH 6.0 Ur Specific [place] 1.015 Urine Protein Negative Urine Glucose (UA) Negative Urine Ketones 2+ H Urine Occult Blood Negative Urine Nitrate Negative Urine Bilirubin Negative Urine Urobilinogen 0.2 Ur Leukocyte Esterase 1+ H Urine RBC None seen Urine WBC 1-5/hpf Ur Squamous Epith Cells 0-1 /hpf Urine Bacteria Occasional (0-1) Ur Culture Indicated? Specimen cultured Vol Urine Centrifuged 10ml (spun) PFSH Social History household members: spouse Smoking Status: Former smoker Assessment & Plan Assessment & Plan narrative: Pelvic rami fracture right. Status post fall. Did not appear to be significant other than slipping on the floor. Patient was significant pain has not been mobilizing. Will continue DVT prophylaxis. PT OT. Pain control with Dilaudid and Toradol. Hope can mobilize today comfortably get her set up with appropriate mobilization tools and follow-up with discharge tomorrow. Hyperlipidemia. Continue current statin. Hypertension. Blood pressure overall stable. Restart medicines as needed. DVT prophylaxis on heparin. Code status full. Disposition probably home tomorrow. 45 minutes spent reviewing information discussing with sajan Diaz chart review orders dictation time with the patient Time-Based Coding :: [TOTAL MINUTES] spent with patient and on the chart (including review of chart, obtaining history, exam, reviewing outside data, placing orders, documenting exam and treatment plan, and counseling patient) on [DATE].
--- NOTE | 2024-09-06 14:25 | PM.CN ---
History of Present Illness Consult details Date Patient Seen: 09/06/24 Time Patient Seen: 12:00 Chief complaint: Fall, back and r. hip pain Reason for consult: pelvic fx Narrative: Pleasant 69 yo woman who suffered a ground-level fall in her home last night, resulting in right hip and low back pain. CT of the pelvis demonstrated a minimally displaced right inferior pubic ramus fracture. She denies a history of osteoporosis. She takes daily calcium supplements. Meds Home Medications and Allergies Home Medications Medication Instructions Recorded Confirmed Type ESOMEPRAZOLE SODIUM (NEXIUM) 20 mg PO QDAY ##0 08/26/12 09/05/24 History aspirin 81 mg tablet,delayed 81 mg PO BID ##0 08/26/12 09/05/24 History release atorvastatin 10 mg tablet (Lipitor) 40 mg PO QDAY ##0 08/26/12 09/05/24 History triamterene 37.5 0.5 cap PO QDAY ##0 08/26/12 09/05/24 History mg-hydrochlorothiazide 25 mg capsule (Dyazide) metoprolol succinate 100 mg 200 mg PO DAILY 03/11/18 09/06/24 History tablet,extended release 24 hr gabapentin 300 mg PO TID 09/05/24 09/05/24 History naltrexone 4.5 mg PO BEDTIME 09/05/24 09/05/24 History potassium chloride 10 mEq 10 meq PO BID 09/05/24 09/05/24 History tablet,extended release(part/cryst) metoprolol succinate 100 mg 150 mg PO QPM 09/06/24 09/06/24 History tablet,extended release 24 hr Allergies Allergy/AdvReac Type Severity Reaction Status Date / Time amlodipine [From NORVASC] Allergy Unknown Numbness Verified 09/05/24 16:17 Penicillins [PENICILLINS] Allergy Unknown Rash Verified 09/05/24 16:17 lidocaine AdvReac Intermediate Palpitation Verified 09/05/24 16:17 s Review of Systems Review of Systems ROS: Yes All systems reviewed with the patient and are negative except as otherwise documented Musculoskeletal Comments: C/o pain in RLE when standing/walking. Exam Vital Signs (past 8 hours): - 09/06/24 08:00 09/06/24 09:30 09/06/24 10:45 Temperature 97.7 F Pulse Rate 67 77 Respiratory Rate 18 Blood Pressure 137/69 132/82 Pulse Oximetry 95 Oxygen Delivery Method Room Air Oxygen Flow Rate 0 Oxygen Delivery Method Room Air Oxygen Flow Rate 0 Narrative Exam Narrative: 5/5 strength throughout LLE. 5/5 strength in hip flexors, quadriceps, hamstrings, PF, DF, EHL on right; c/o pain only w/ hip flexion. Calves are soft and compressible. Sensation to light touch intact throughout BLE. Objective Labs 09/06/24 05:54 09/06/24 05:54 Labs: Laboratory Results - last 24 hr 09/05/24 09/06/24 09/06/24 19:40 00:14 05:54 WBC 7.5 7.0 RBC 4.15 3.92 L Hgb 13.2 12.5 Hct 39.0 37.1 MCV 94.1 94.6 MCH 31.8 32.0 MCHC 33.8 33.8 RDW 13.2 13.3 Plt Count 208 198 Neut % (Auto) 68.6 63.1 Lymph % (Auto) 19.6 L 23.1 L [place] % (Auto) 8.1 7.7 Eos % (Auto) 2.7 5.0 H Baso % (Auto) 1.0 1.1 Neut # (Auto) 5200 4400 Lymph # (Auto) 1500 1600 [place] # (Auto) 600 500 Eos # (Auto) 200 400 Baso # (Auto) 100 100 PT 12.7 H INR 1.1 Sodium 138 136 L Potassium 3.7 3.5 Chloride 101 101 Carbon Dioxide 32 31 BUN 17 23 H Creatinine 0.70 0.69 Estimated GFR > 60 > 60 BUN/Creatinine Ratio 24.3 H 33.3 H Glucose 87 91 Calcium 8.9 8.7 Total Bilirubin 1.2 AST 34 ALT 26 Alkaline Phosphatase 125 Total Protein 6.8 Albumin 4.0 Globulin 2.8 Albumin/Globulin Ratio 1.4 Urine Color Yellow Urine Appearance Clear Urine pH 6.0 Ur Specific [place] 1.015 Urine Protein Negative Urine Glucose (UA) Negative Urine Ketones 2+ H Urine Occult Blood Negative Urine Nitrate Negative Urine Bilirubin Negative Urine Urobilinogen 0.2 Ur Leukocyte Esterase 1+ H Urine RBC None seen Urine WBC 1-5/hpf Ur Squamous Epith Cells 0-1 /hpf Urine Bacteria Occasional (0-1) Ur Culture Indicated? Specimen cultured Vol Urine Centrifuged 10ml (spun) PFSH Social History household members: spouse Tobacco & Substance Use Smoking Status: Former smoker Assessment & Plan Assessment and plan (1) Closed fracture of right pelvis: Status: Acute Plan: Imaging and examination reviewed w/ Dr Flaca Wilburn. Minimally displaced fx of the inferior pubic ramus. Pt is neurovascularly intact. No intervention indicated at this time. Weightbearing/activity as tolerated, walker or other assistive device as needed. Pain control and VTE prophylaxis per PCP, Dr Montiel. F/u w/ ortho - Dr Wilburn - in 2-3 weeks for repeat imaging. Time-Based Coding :: [TOTAL MINUTES] spent with patient and on the chart (including review of chart, obtaining history, exam, reviewing outside data, placing orders, documenting exam and treatment plan, and counseling patient) on [DATE].
--- NOTE | 2024-09-06 15:40 | CM.DANOTE ---
B DCP Assessment Note Pt is a 69yo F here with pelvic fracture after GLF. non operable. PCP [employer] Medicare and [employer] DYE MACHINE TENDER reviewed EMR. pt lives in [place] with spouse. indep at baseline. per PT, rec home with assistance, lots of anxiety, rec home with walker. DYE MACHINE TENDER unable to meet with pt today due to triaging needs. P: anticipate home when medically stable with spouse, will f/u about walker for home use Saturday. close OP f/u recommended. NGOZI Navarro Discharge Planning/Care Management Advanced directive, confirm from FAMILY Start: 09/05/24 20:36 Freq: Q24H Status: Active Protocol: Document 09/05/24 20:42 AT (Rec: 09/05/24 20:42 AT [id number]) Advance Directive, confirm on record Time 20:42 Person contacted self Copy received No CM Discharge Assessment Start: 09/06/24 15:22 Freq: Status: Active Protocol: Document 09/06/24 15:22 SL (Rec: 09/06/24 15:37 SL [id number]) Discharge Planning Assessment Assigned Oil Well Perforator Operator NGOZI Lee DPOA/Assigned Designee Name John spouse Contact Information [phone] Advance Directives? Yes Advance Directives on File No History Provided By Patient Prior Living Arrangements House Household Members spouse Type of transporation used prior to Drives own vehicle admit Independent with ADL's Yes Is patient alert and oriented? Yes Discharge Plan Home Referrals Initiated None needed Whiteboard Updated in Patient Room with No name and ext. # of Oil Well Perforator Operator Review Status In Process Please Provide Date Initial DC 09/06/24 Assessment Was Performed Next Review Type Continued Stay Review
[2024-09-06] MEDS: ACETAMINOPHEN 325 MG TABLET 650 MG PO (20:00)
[2024-09-06] MEDS: ASPIRIN EC 81 MG TABLET PO (20:51)
[2024-09-06] MEDS: METOPROLOL ER 50 MG TABLET 150 MG PO (20:51)
[2024-09-06] MEDS: GABAPENTIN 300 MG CAPSULE PO (20:52)
[2024-09-06] MEDS: ATORVASTATIN 20 MG TABLET 40 MG PO (20:52)
[2024-09-07 03:00] VITALS: BP 128/80; PULSE 60; RESP 18; TEMP 36.4; O2SAT 96
[2024-09-07] MEDS: KETOROLAC 10 MG TABLET PO ×2 (03:16→09:17)
[2024-09-07] MEDS: PANTOPRAZOLE DR 40 MG TABLET PO (06:36)
[2024-09-07] MEDS: ACETAMINOPHEN 325 MG TABLET 650 MG PO (06:38)
[2024-09-07 07:52] VITALS: BP 127/76; PULSE 60; RESP 17; TEMP 36.4; O2SAT 96
--- NOTE | 2024-09-07 08:18 | P.DS_ITS ---
History of Present Illness History of Present Illness Date Patient Seen: 09/07/24 Time Patient Seen: 08:18 Date of Onset of Symptoms: 10/06/24 Chief complaint: Fall, back and r. hip pain Narrative: 69 year-old female with past medical history of hyperlipidemia, hypertension, GERD, presents with complaint of a fall and right hip pain. Per the patient report, the patient was home and had a mechanical fall. The patient landed on the right side of her hip and also her lower back. The patient did have increasing pain throughout the day in her right hip but denies any focal weakness, numbness or urinary/bowel incontinence. The patient also denies any head injury or loss of consciousness. The patient denies being on a blood thinner. The patient denies any fever, chills, nausea, vomiting, diarrhea, chest pain, shortness of breath. In our emergency room, the patient was hemodynamically stable. Labs shows no acute findings. CT of the abdomen pelvic shows a minimally displaced fracture of the right pubis and mildly displayed fracture of the right inferior pubic ramus. Orthopedic surgeon was called and recommended to admit the patient for pain control, PT/OT and orthopedic will be available for consult if need in the morning. Discharge Providers Provider Date of admission: 09/05/24 19:27 Discharge Date: 09/07/24 Primary care physician: Clay Montiel MD Consults: 09/05/24 21:02 Consult to Occupational Therapy Evaluate & Treat Comment: Physician Instructions: Evaluate and treat Consult to Physical Therapy Evaluate & Treat Comment: Physician Instructions: Evaluate and Treat 09/06/24 06:51 Consult to Orthopedic Surgery Routine Comment: Consulting Provider: Flaca Wilburn Reason for consultation: fracture right pubic ramus 09/06/24 10:50 Consult to Occupational Therapy Evaluate & Treat Comment: pelvic fracture Physician Instructions: Evaluate and treat Discharge provider: Mario Shepherd MD Summary Hospital Course Discharge Diagnosis: Pelvic rami fracture from ground level fall Hyperlipidemia Hypertension Hospital Course: Pelvic rami fracture from ground level fall. Patient had slipped in her kitchen and fell with acute pain. Tried to get through the rest of the day and could not called 911 was brought to the emergency room. Workup revealed a pelvic rami fracture non displaced. Patient was admitted for pain control and physical therapy. Occupational therapy. Patient was placed on Dilaudid and Toradol pain overall was okay. She still hurt quite a bit when she got up to move but was functional. She had no other significant change. Was able to ambulate with significant pain but able to do it. PT OT felt like she could go home. She felt like she could do it at home. And was discharged. Will be sent with Toradol and Dilaudid. Follow-up with orthopedist 2-3 weeks. Hyperlipidemia. Presumed usual meds. Doing well no issues. Hypertension. Stable. Exam Vital Signs (past 8 hours): - 09/07/24 03:00 09/07/24 07:52 Temperature 97.6 F 97.5 F L Pulse Rate 60 60 Respiratory Rate 18 17 Blood Pressure 128/80 127/76 Pulse Oximetry 96 96 Oxygen Flow Rate 0 0 Oxygen Delivery Method Room Air Oxygen Flow Rate 0 Narrative Exam Narrative: Alert female lying in bed in no acute distress Lungs are clear heart is regular rate and rhythm Objective Labs 09/06/24 05:54 09/06/24 05:54 [facility] Social History household members: spouse Smoking Status: Former smoker Discharge Assessment & Plan Assessment and Plan Assessment: Improved Plan of Treatment: Discharge home. Expect 4-6 weeks recovery. Follow-up with ortho as scheduled Discharge Plan Discharge Plan Patient Disposition: Home Discharge orders & Medications Prescriptions: New ketorolac 10 mg Tablet 10 mg PO Q6HR PRN (Reason: Pain, Mild (1-3)) Qty: 12 0RF Continued atorvastatin [Lipitor] 10 MG tablet 40 mg PO QDAY Qty: 0 aspirin 81 MG tablet,delayed release (DR/EC) 81 mg PO BID Qty: 0 triamterene-hydrochlorothiazid [Dyazide] 37.5 MG/25 MG capsule 0.5 cap PO QDAY Qty: 0 Rx Instructions: 75-50 mg tab ESOMEPRAZOLE SODIUM (NEXIUM) 20 mg PO QDAY Qty: 0 metoprolol succinate 100 mg Tablet Extended Release 24 Hr 200 mg PO DAILY Rx Instructions: Take two tablets by mouth BID gabapentin 300 mg PO TID Rx Instructions: take one to two capsules TID a day naltrexone 4.5 mg PO BEDTIME potassium chloride 10 mEq tablet,ER particles/crystals 10 meq PO BID metoprolol succinate 100 mg Tablet Extended Release 24 Hr 150 mg PO QPM Follow up/Referrals: Flaca Wilburn MD [Physician] - 2 Weeks (Please call for appointment) Clay Montiel MD [Primary Care Provider] - 1 Week (Call for appointment) Discharge Health Status Multidrug resistant organism: No MDRO Diet/Activity/Treatments Diet: Diet as Tolerated Activity: As tolerated Skin/Wound/Dressing Care Report to your healthcare provider any signs of infection, such as:: increased pain Visit Report/Discharge Packet Stand Alone Forms: Patient Portal/API, Stroke Signs & Symptoms Discharge Data Primary Care Provider: Clay Montiel
[2024-09-07] MEDS: POTASSIUM CHLORIDE 10 MEQ TAB PO (08:36)
[2024-09-07] MEDS: METOPROLOL ER 50 MG TABLET 200 MG PO (08:36)
[2024-09-07] MEDS: HYDROCHLOROTHIAZIDE PO (08:37)
[2024-09-07] MEDS: TRIAMTERENE PO (08:37)
--- NOTE | 2024-09-07 10:29 | PT-IP ANOTE ---
PT checks in with pt who is with OT. She reports walking better with walker this morning and no questions for PT. Pt is unsure if she wants RW delivered and is going to call to see if he can check at [facility] first. PT recommends RW for home use and pt's to check [employer] tomorrow about borrowing rollator for outdoor walking when pt ready. PT asks SW to put in order for RW just in case pt decides she would like one.
--- NOTE | 2024-09-07 10:41 | OT.IP.EVAL ---
Current Diagnoses Fracture of unspecified parts of lumbosacral spine and pelvis, initial encounter for closed fracture (09/05/24) Occupational Therapy Inpatient Evaluation/Re-Eval M1 PT/OT-IP Prior Functional Status Start: 09/06/24 09:31 Freq: NEEDED Status: Active Protocol: Document 09/07/24 13:29 CGR (Rec: 09/07/24 13:41 CGR [id number]) Medical Review Prior Functional Status Medical History Reviewed Yes Diet/Fluid Consistency Regular Communication Pt is a functional verbal communicator Mobility and Gait IND with all mobility at baseline. Pt is active in her garden. Activities of Daily Living and IADL's Pt is IND in all ADLs and IADLS without AD. Pt is an active tractor trailer driver. Social History Household Members spouse Living Arrangements House Number of Floors (Floors) 3 or More Floors Number of Stairs To Enter/Railing? 0 steps to enter and pt can stay on the main level. Home Environment Standard Height Toilet,Walk in Shower Home Equipment Straight Cane Employment Status Retired M2 OT-IP Current Condition Start: 09/07/24 13:29 Freq: Status: Active Protocol: Document 09/07/24 13:29 CGR (Rec: 09/07/24 13:41 CGR [id number]) Occupational Therapy Current Condition Current Condition Evaluation Date 09/07/24 Treatment Diagnosis GLF, minimally displaced fx R pubis and R inferior pubic ramus Diagnosis Onset Date 09/05/24 M3 OT- IP Subjective and Pain Start: 09/07/24 13:29 Freq: Status: Active Protocol: Document 09/07/24 13:29 CGR (Rec: 09/07/24 13:41 CGR [id number]) OT- Subjective Occupational Therapy Visit Type Type Initial Evaluation Visit Start Time 09:40 Visit Stop Time 10:41 OT Pain Assessment Pain When Pain Assessed At Rest Pain Present Pain Present Pain Reported Location Right pubic area and LB Intensity 2 Scale Used Numeric (0 - 10) Management Techniques Modification of Treatment,Re- positioning,Timing of Activity with Medications M4 OT- IP ADL's Start: 09/07/24 13:29 Freq: Status: Active Protocol: Document 09/07/24 13:29 CGR (Rec: 09/07/24 13:41 CGR [id number]) OT [id number] Comments OT Self-Feeding Comments not meal time OT ADL-Grooming General Evaluation Grooming Ability Independent Areas Needing Assistance Face Washing Comments OT Grooming Comments standing at sink OT ADL-Oral Care General Eval Oral Care Ability Independent Areas of Assistance Brushing Teeth Comments Oral Care Comments standing at sink OT ADL-Dressing General Eval Lower Body Dressing Ability Independent Areas Needing Assistance Underpants/Brief,Socks Comments OT Dressing Comments Pt educated on use or splitter tender if needed but pt was able to perform without assistive devise. OT ADL-Toileting General Evaluation Toileting Ability Independent Comments OT Toileting Comments urination at toielt OT ADL-Bathing Comments OT Bathing Comments not performed M5 OT- IP IADL's Start: 09/07/24 13:29 Freq: Status: Active Protocol: Document 09/07/24 13:29 CGR (Rec: 09/07/24 13:41 CGR [id number]) OT-Instrumental Activities of Daily Living Deficits IADL Deficits Identified No Deficits Home Safety Awareness Awareness of Need for Assistance at Home Good Awareness Ability to Problem Solve Emergency Able to Problem Solve Situations Medication Management Medication Management No Deficits Identified Money Management Money Management No Deficits Identified Meal Preparation Meal Preparation No Deficits Identified Carpenters Helper Carpenters Helper No Deficits Identified, Caregiver Provides Assist Driving Driving Comments Pt was an active tractor trailer driver and is concerned about getting back to driving. Pt educated on need to refrain from driving while medicated but once she can move her leg appropriately for driving then she would be ok to drive. M6 OT- IP Functional Cognition Start: 09/07/24 13:29 Freq: Status: Active Protocol: Document 09/07/24 13:29 CGR (Rec: 09/07/24 13:41 CGR [id number]) Cognitive Factors Limiting Selfcare Function Cognitive Ability Level of Alertness Alert Patient Orientation Name,Age,Birthday,Month,Date, Year,Day of Week,Place, Situation Attention Span Ability Capable of Focused Attention, Capable of Sustained Attention Ability to Follow Commands Able to Follow Multi-Step Commands OT- Vision and Hearing OT- Hearing Assessment OT- Hearing Assessment WFL OT- Vision Assessment Vision History Cataracts Visual Acuity Glasses For Reading Visual Attentiveness WFL Occular Pursuits WFL Visual Convergence WFL M7 OT- IP Mobility and Balance Start: 09/07/24 13:29 Freq: Status: Active Protocol: Document 09/07/24 13:29 CGR (Rec: 09/07/24 13:41 CGR [id number]) OT- Bed Mobility Assessment Supine to Sit Supine to Sit Assist Independent Scooting Scooting to Edge of Bed Independent OT-Transfer Assessment Sit to and From Stand Sit to and from Stand Standby Assistance Transfers Transfer Ability Standby Assistance Technique Transfer Destination Bed,Chair,Toilet Transfer Technique Stand Step Pivot Devices Transfer Assistive Devices Gait Belt,Front Wheeled Walker Comments Mobility Comments Mobility around the room and bathroom OT- Gait Assessment Gait Gait Assistance Required: Standby Assistance Assistive Devices Assistive Device Gait Belt,Front Wheeled Walker OT- Balance Assessment Sitting Balance and Reactions Static Sitting Balance Ability Normal Dynamic Sitting Balance Ability Normal M8 OT- IP Objective Assessments Start: 09/07/24 13:29 Freq: Status: Active Protocol: Document 09/07/24 13:29 CGR (Rec: 09/07/24 13:41 CGR [id number]) OT Gross Range of Motion Upper Extremity Range of Motion Assessment Within Functional Limits ROM Impairments note of slighlty less ROM to the R shld from hx of shld sx. OT Strength Upper Extremity Strength Assessment Within Functional Limits Comments Strength Comments R shld 4/5, otherwise 4+/5 OT- Coordination Assessment Upper Extremity Finger to Nose Test Within Functional Limits Finger Tapping Test Within Functional Limits OT-Muscle Tone Assessment Muscle Tone WNL Yes OT Sensation Assessment Edema Edema Absent M9 OT- IP Assessment and Plan Start: 09/07/24 13:29 Freq: Status: Active Protocol: Document 09/07/24 13:29 CGR (Rec: 09/07/24 13:41 CGR [id number]) OT Summary Assessment and Plan Potential Rehabilitation Potential Excellent Analytic Complexity at Evaluation Low Summary OT Impairments Pain,Balance,Functional Mobility,Activity Tolerance Progress Towards Goals Slow Progress due to Pain Assessment Summary Pt presents as a low complexity evaluation s/p admit for fall with R pubis and R inferior pubic ramus fx. Pt is progressing well and planned for discharge home today. Frequency of Treatment Frequency Of Treatment Discharge Discharge Recommendations OT Discharge Recommendations Home with Assistance Transportation Needs at Discharge Private Vehicle
--- NOTE | 2024-09-07 11:00 | PT.IPTN ---
Current Diagnoses Fracture of unspecified parts of lumbosacral spine and pelvis, initial encounter for closed fracture (09/05/24) Physical Therapy Treatment Note M2 PT-IP Current Condition Start: 09/06/24 09:31 Freq: NEEDED Status: Active Protocol: Document 09/06/24 10:09 MB (Rec: 09/06/24 10:42 MB [id number]) Physical Therapy Current Condition Current Condition Evaluation Date 09/06/24 Treatment Diagnosis Right pubis and right inferior pubic ramis fx M3 PT-IP Subjective Start: 09/06/24 09:31 Freq: NEEDED Status: Active Protocol: Document 09/07/24 10:49 MB (Rec: 09/07/24 11:00 MB [id number]) Subjective Physical Therapy Visit Type Type Treatment Note Visit Start Time 10:49 Visit Stop Time 10:57 Number of MEAT BLENDER Visits 0 Physical Therapy Visit Comments Patient Comments Pt states [facility] does not have RW and she would like one issued, arrives. M4 PT-IP Mobility and Gait Start: 09/06/24 09:31 Freq: NEEDED Status: Active Protocol: Document 09/06/24 10:09 MB (Rec: 09/06/24 10:42 MB [id number]) PT-Bed Mobility Assessment Supine to Sit Supine to Sit Standby Assistance,Head of Bed Elevated,Bedrails Scooting Scooting to Edge of Bed Standby Assistance PT-Transfer Assessment Sit to and From Stand Sit to and from Stand Contact Guard Assistance,1 Person Assistance,Use of Upper Extremities Equipment Transfer Assistive Device Gait Belt,Front Wheeled Walker Orthotic/Prosthetic Devices or Brace: No Transfers Transfer Destination Toilet Transfer Technique Ambulation Transfer Ability Level of Assist Contact Guard Assistance,1 Person Assistance,Use of Upper Extremities Comments Mobility Comments Cues to push up from the bed and not to reach for the walker, cues to back up to toilet and to reach for grab bar right hand and toilet seat left hand and instructed pt to do the same when she gets up with nsg after toileting ( she needs some time) and left with grab cord in lap and nsg aware Gait Assessment Gait Gait Assistance Required: Contact Guard Assist Distance (Feet) 20 Able to Maintain Weight Bearing Status Yes During Gait Assistive Devices Assistive Device Gait Belt,Front Wheeled Walker Orthotic/Prosthetic Devices or Brace: No Gait Deviations General Gait Pattern Antalgic,Decreased Stride Length,Flexed Trunk,Step-to Gait Factors Limiting Gait Function Factors Limiting Gait Function Decreased Activity Tolerance, Pain PT-Balance Assessment Sitting Balance and Reactions Static Sitting Balance Ability Good Dynamic Sitting Balance Ability Good Standing Balance and Reactions Static Standing Balance Ability Good Dynamic Standing Balance Ability Fair Device Used RW M5 PT-IP Objective Assessments Start: 09/06/24 09:31 Freq: NEEDED Status: Active Protocol: Document 09/06/24 10:09 MB (Rec: 09/06/24 10:42 MB [id number]) Orientation Orientation/Cognition Level of Alertness Alert Language Function Ability No Deficits Noted Safety Awareness Understands Safety Issues Memory Description No Deficits Noted Gross Range of Motion Upper Extremity ROM Assessment Within Functional Limits Impairments Pt reports she has a bad right shoulder Lower Extremity ROM Impairments LE ROM functional but not fully assessed d/t pain from fx Strength Upper Extremity Strength Assessment Within Functional Limits Lower Extremity Strength Assessment Within Functional Limits Coordination Assessment Gross Coordination Gross Coordination Impaired Assessment Coordination Comments Antalgic movement today Sensation Assessment Sensation Gross Sensation WNL Muscle Tone Muscle Tone WNL Yes M6 PT-IP Treatment Start: 09/06/24 09:31 Freq: NEEDED Status: Active Protocol: Document 09/07/24 10:49 MB (Rec: 09/07/24 11:00 MB [id number]) Physical Therapy Treatment Equipment Issued Equipment Type and Company PT obtains order for RW and issues to pt, PT ed pt and how to change rubber back stoppers for plastic ones if they like at home and PT shows them how to adjust height of walker M7 PT-IP Assessment and Plan Start: 09/06/24 09:31 Freq: NEEDED Status: Active Protocol: Document 09/07/24 10:49 MB (Rec: 09/07/24 11:00 MB [id number]) PT Summary Assessment and Plan Summary Assessment Summary RW issued and pt ready for d/c . Frequency of Treatment Frequency Of Treatment Discharge Other frequency .
--- NOTE | 2024-09-07 11:12 | PC.NURSE ---
D/c instructions reviewed with pt. IV removed. Pt confirmed that she had all belongings. Pt exited via w/c with DISABILITY SERVICES COORDINATOR and spouse to private vehicle.
--- NOTE | 2024-09-07 13:10 | CM.DPC ---
DCP Discharge Home Per MD, pt medically stable to d/c home today with outpt f/u with Ortho and no identified barriers to discharge. Per PT/OT, recommending safe d/c home with spouse assist and outpt PT and FWW and pt and spouse confirm that they could not purchase one at [email or web address] as they were out of stock and [employer] not open until tomorrow and requesting PT to issue FWW for home use at d/c and orders placed. Per Rn, discharge instructions provided and no concerns noted. Stacey Calle MSW
== END 2024-09-07 11:13 | disposition home or self-care (01) | DRG 536 ==
LOC: ED 19:26 → AC 20:07
PROVIDERS: Admitting Provider Internal Medicine; Emergency Provider Emergency Medicine; PCP Family Medicine; Referring Provider Emergency Medicine; Visit Provider Family Medicine
DX: S32.591A Other specified fracture of right pubis, initial encounter for closed fracture (principal); E78.5 Hyperlipidemia, unspecified; I10 Essential (primary) hypertension; K21.9 Gastro-esophageal reflux disease without esophagitis; W18.30XA Fall on same level, unspecified, initial encounter; Z87.891 Personal history of nicotine dependence
CPT/HCPCS: 36415; 73502; 74176; 80048; 80053; 81001; 85025; 85610; 87086; 96374; 96375; 97161; 97165; 97535; 99284; 99285; J1171; J1644; J1885

== ENCOUNTER → 2024-12-23 15:12 | Outpatient (CLI) | payer MEDICARE, OTHER, SELFPAY ==
[2024-09-05 20:28] VITALS: BMI 26.6
--- NOTE | 2024-12-23 15:13 | DI.MG.S_ITS ---
MM screening mammo BI: 12/23/2024. BI-RADS: 1 CLINICAL: 69-year old female for bilateral screening mammogram. Tyrer-Cuzick lifetime risk of 5.2%. No personal or first-degree family history of breast cancer. PRIOR EXAMS 11/07/2022. MAMMOGRAPHY TECHNIQUE: 2D and 3D (tomosynthesis) digital mammographic views obtained, with additional images as needed for full coverage. Current study was also evaluated with a Computer Aided Detection (CAD) system. DENSITY C. The breasts are heterogeneously dense, which may obscure small masses. MAMMOGRAPHY FINDINGS Bilateral: No suspicious mass, asymmetry, microcalcification, or other abnormality seen. No significant change from comparison. IMPRESSION: * No evidence of malignancy. RECOMMENDATIONS Bilateral * Annual screening mammography. OVERALL ASSESSMENT CATEGORY BI-RADS-1: Negative. The [employer] recommends annual screening mammography beginning at age 40 for women with average risk of breast cancer. ELECTRONICALLY SIGNED: Suzy Rojas M.D. on 12/23/2024 at 04:59:39 PM PT Interpreting Station ID: [id number]
--- NOTE | 2024-12-23 15:13 | DI.RAD.S_ITS ---
PROCEDURE: XR DEXA AXIAL SKELETON INDICATIONS: ROUTINE SCREENING/POSTMENOPAUSAL COMPARISON: [facility], CR, XR DEXA AXIAL SKELETON, 03/13/2022, 14:36. FINDINGS: Lumbar Spine: Bone mineral density 0.969 (previously 1.050) g/cm2, T score -0.4 (previously 0.0). Left Femoral Neck: Bone mineral density 0.789 (previously 0.822) g/cm2, T score -0.5 (previously-0.2). Left Hip: Bone mineral density 0.846 (previously 0.886) g/cm2, T score -0.8 (previously-0.5). Fracture Risk Calculation (when applicable): 10-year fracture risk of a major osteoporotic fracture a 0.1 percent and of a hip fracture 0.7 percent. (T score greater or equal to -1.0 to: NORMAL) (T score from -1.1 to -2.4: OSTEOPENIA) (T score less than or equal to -2.5: OSTEOPOROSIS) IMPRESSION: Normal---recommend repeat DEXA when clinically indicated. Follow-up guidelines as follows: Osteoporosis: Consider a repeat DEXA and Vertebral Fracture Assessment (VFA) exam in 2 years or sooner if medically necessary, to reassess this patient's status. Osteopenia: Consider a repeat DEXA in 2-3 years to reassess this patient's status, or if there is a new clinical indication. Normal: Consider a repeat DEXA in 5 years or sooner, or if there is a new clinical indication. All treatment decisions require clinical judgment and consideration of individual patient factors, including patient preferences, comorbidities, previous drug use, risk factors not captured in the FRAX model (e.g., frailty, falls, vitamin D deficiency, increased bone turnover, interval significant decline in bone density ) and possible under- or over-estimation of fracture risk by FRAX. In addition, the NOF Guide recommends that FDA-approved medical therapies be considered in postmenopausal women and men age >= 50 years with a: * Hip or vertebral (clinical or morphometric) fracture * T-score of <=-2.5 at the spine or hip * Ten-year fracture probability by FRAX of >= 3% for hip fracture or >=20% for major osteoporotic fracture. Dictated by: Konrad Sebastian M.D. on 12/24/2024 at 19:42 Approved by: Konrad Sebastian M.D. on 12/24/2024 at 19:43
== END ==
PROVIDERS: PCP Family Medicine; Referring Provider Family Medicine; Visit Provider Family Medicine
DX: Z78.0 Asymptomatic menopausal state (principal); Z12.31 Encounter for screening mammogram for malignant neoplasm of breast; R92.333 Mammographic heterogeneous density, bilateral breasts
CPT/HCPCS: 77063; 77067; 77080